=== PATIENT | male | born 1990 | race Caucasian/White ===

== ENCOUNTER 2018-04-06 07:07 | Emergency (ER) | payer MEDICAID ==
[~2018-04-06] VITALS: Ht 180.3 cm; Wt 109.0 kg
[2018-04-06 08:19] LABS: BASOPHILS % 0.4 % (0.0-2.0); EOSINOPHILS % 2.2 % (0.0-5.0); HEMOGLOBIN. 14.6 g/dL (14.0-18.0); LYMPHOCYTES % 11.9 % (20.0-50.0); MEAN CORPUSCULAR HEMOGLOBIN 31.1 pg (28.0-32.0); MEAN CORPUSCULAR VOLUME 91.2 fL (80.0-94.0); MEAN PLATELET VOLUME 7.5 fl (7.4-10.4); MONOCYTES % 5.6 % (2.0-8.0); NEUTROPHILS % 79.9 % (40.0-76.0); PLATELET 272 x1000/uL (130-400); RED BLOOD CELL COUNT 4.71 mill/uL (4.7-6.1); RED CELL DISTRIBUTION WIDTH 13.4 % (11.6-14.6)
[2018-04-06 08:21] LABS: CHLORIDE 107 mEq/L (98-107)
[2018-04-06 08:25] LABS: ETHANOL BLOOD < 10 mg/dL
[2018-04-06 09:25] VITALS: BP 118/80
== END 2018-04-06 09:26 | disposition home or self-care (01) ==
LOC: ER 07:07 → EDBD 07:07 → ER 09:26
DX: T40.1X1A Poisoning by heroin, accidental (unintentional), initial encounter (principal); F17.200 Nicotine dependence, unspecified, uncomplicated; Y92.89 Other specified places as the place of occurrence of the external cause
CPT/HCPCS: 36415; 80053; 85025; 99283; G0482

== ENCOUNTER 2019-07-31 14:45 | Emergency (ER) | payer SELFPAY ==
[~2019-07-31] VITALS: Ht 188 cm; Wt 100.0 kg
[2019-07-31] MEDS ORDERED: MAGNESIUM/ALUMINUM HYDROXIDE/SIMETHICONE 30ML UDC PO ONE (15:15)
[2019-07-31] MEDS ORDERED: SODIUM CHLORIDE 0.9% 1,000 ML IV ONE ×2 (15:15→16:45)
[2019-07-31] MEDS ORDERED: VISCOUS LIDOCAINE 2% 15 ML UDC PO ONE (15:15)
[2019-07-31] MEDS ORDERED: ONDANSETRON HCL 4MG/2ML INJ IV STA (15:15)
[2019-07-31 16:06] LABS: CHLORIDE 95 mEq/L (98-107)
[2019-07-31 16:10] LABS: BASOPHILS % 0.5 % (0.0-2.0); ETHANOL BLOOD < 10 mg/dL; HEMATOCRIT. 47.9 % (42.0-52.0); HEMOGLOBIN. 15.6 g/dL (14.0-18.0); MEAN CORPUSCULAR HEMOGLOBIN 31.1 pg (28.0-32.0); MEAN CORPUSCULAR VOLUME 95.7 fL (80.0-94.0); MEAN PLATELET VOLUME 8.8 fl (7.4-10.4); MONOCYTES % 4.5 % (2.0-8.0); PLATELET 287 x1000/uL (130-400); RED CELL DISTRIBUTION WIDTH 15.3 % (11.6-14.6)
[2019-07-31 16:24] LABS: *AMPHETAMINES SCREEN URINE NEGATIVE (NEGATIVE); *BARBITURATES SCREEN URINE NEGATIVE (NEGATIVE)
[2019-07-31 16:25] LABS: *BENZODIAZEPINES SCREEN URINE NEGATIVE (NEGATIVE); *COCAINE SCREEN URINE NEGATIVE (NEGATIVE); CANNABINOID URINE SCREEN PRESUMTIVE POSITIVE (NEGATIVE); METHADONE URINE SCREEN NEGATIVE (NEGATIVE); OPIATES URINE SCREEN PRESUMTIVE POSITIVE (NEGATIVE); PHENCYCLIDINE URINE SCREEN NEGATIVE (NEGATIVE)
[2019-07-31] MEDS ORDERED: INSULIN REGULAR (DRIP) 100 UNITS in SODIUM CHLORIDE 0.9% 100 ML IV ONE (16:41)
[2019-07-31 17:30] LABS: PHOSPHORUS 5.2 mg/dL (2.5-4.9)
[2019-07-31 19:18] LABS: CHLORIDE 102 mEq/L (98-107)
[2019-07-31 19:47] VITALS: BP 115/66
[2019-07-31] MEDS ORDERED: SODIUM CHLORIDE 0.9% 1,000 ML IV SCH (20:58)
[2019-07-31] MEDS ORDERED: ONDANSETRON HCL 4MG/2ML INJ IV PRN (21:00)
[2019-07-31] MEDS ORDERED: INSULIN REGULAR (DRIP) 100 UNITS in SODIUM CHLORIDE 0.9% 100 ML IV SCH (21:00)
[2019-07-31] MEDS ORDERED: ENOXAPARIN 40MG/0.4ML SYR SUBCUT SCH (21:00)
[2019-07-31] MEDS ORDERED: IPRATROPIUM/ALBUTEROL 0.5-3(2.5)MG/3ML NEB NEB PRN (21:00)
[2019-07-31 21:06] LABS: CHLORIDE 103 mEq/L (98-107)
[2019-07-31 21:33] LABS: PHOSPHORUS 2.3 mg/dL (2.5-4.9)
== END 2019-07-31 22:23 ==
LOC: ER 14:45 → CANRESERV 19:28 → ENRESERV 19:28 → ER 22:23 → CANBEDREQ 22:26
DX: E11.10 Type 2 diabetes mellitus with ketoacidosis without coma (principal); G40.909 Epilepsy, unspecified, not intractable, without status epilepticus
CPT/HCPCS: 36415; 71045; 80048; 80053; 80305; 80320; 82962; 83036; 83690; 83735; 84100; 84484; 85025; 87040; 93005; 96361; 96365; 96366; 96375; 99291; J1815; J2405; J7030; J7050; G0480